=== PATIENT | male | born 1975 | race Caucasian/White ===

== ENCOUNTER 2019-12-15 11:43 | Inpatient (IN) | payer SELFPAY ==
[~2019-12-15] VITALS: Ht 165.2 cm; Wt 81.3 kg
[2019-12-15] MEDS ORDERED: OCTREOTIDE INJECTION 500 MCG in NS (IVPB) 99 ML IV SCH (12:00)
[2019-12-15] MEDS ORDERED: OCTREOTIDE (FOR SQ USE) 100 MCG/ML VIAL (SandoSTATIN) IV ONE (12:00)
[2019-12-15] MEDS ORDERED: PANTOPRAZOLE 40 MG (PROTONIX) VIAL IV ONE (12:00)
[2019-12-15 12:02] LABS: BASOPHILS % (AUTO) 0 % (0-10); EOSINOPHILS # (AUTO) 0.1 10^3/uL (0.0-0.3); EOSINOPHILS % (AUTO) 1 % (0-10); HEMATOCRIT 27 % (40-54); HEMOGLOBIN 9.7 G/DL (13.3-17.7); LYMPHOCYTES # (AUTO) 2.5 X 10^3 (1.0-4.0); LYMPHOCYTES % (AUTO) 27 % (12-44); MEAN CORPUSCULAR HEMOGLOBIN 33 PG (25-34); MEAN CORPUSCULAR HGB CONC 36 G/DL (32-36); MEAN CORPUSCULAR VOLUME 92 FL (80-99); MEAN PLATELET VOLUME 9.7 FL (7.4-10.4); MONOCYTES # (AUTO) 0.6 X 10^3 (0.0-1.0); MONOCYTES % (AUTO) 7 % (0-12); NEUTROPHILS % (AUTO) 65 % (42-75); PLATELET COUNT 382 10^3/uL (130-400); WHITE BLOOD COUNT 9.2 10^3/uL (4.3-11.0)
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
[2019-12-15] MEDS ORDERED: OCTREOTIDE (FOR BOLUS) 50 MCG/ML SYR (SandoSTATIN) ONE (12:07)
[2019-12-15 12:10] LABS: PROTHROMBIN TIME PATIENT 13.7 SEC (12.2-14.7)
[2019-12-15 12:10] LABS: ALBUMIN 3.5 GM/DL (3.2-4.5); CHLORIDE 103 MMOL/L (98-107); POTASSIUM 3.9 MMOL/L (3.6-5.0); SODIUM 134 MMOL/L (135-145)
[2019-12-15 12:12] LABS: GLUCOSE 160 MG/DL (70-105)
[2019-12-15 12:13] LABS: TOTAL PROTEIN 5.9 GM/DL (6.4-8.2)
[2019-12-15 12:14] LABS: BILIRUBIN,TOTAL 0.2 MG/DL (0.1-1.0); CARBON DIOXIDE 22 MMOL/L (21-32)
[2019-12-15 12:16] LABS: ALKALINE PHOSPHATASE 48 U/L (40-136); CREATININE SERUM 0.79 MG/DL (0.60-1.30); GFR ESTIMATED > 60
[2019-12-15 12:17] LABS: BUN/CREATININE RATIO 35
[2019-12-15 12:19] LABS: ALANINE AMINOTRANSFERASE 17 U/L (0-55)
[2019-12-15] MEDS ORDERED: NS IV 1000 ML 1,000 ML IV SCH (12:30)
[2019-12-15] MEDS ORDERED: OCTREOTIDE INJECTION 50 MCG in NS (IVPB) 50 ML IV ONE (12:30)
[2019-12-15] MEDS ORDERED: HOLD METFORMIN - RECEIVED CONTRAST 20 ML VIAL IV SCH (12:45)
[2019-12-15] MEDS ORDERED: NS 100 ML (IVPB) BAG IV ONE (12:45)
[2019-12-15] MEDS ORDERED: IOHEXOL 350 MG/ML 100 ML (OMNIPAQUE 350) VIAL IV ONE (12:45)
--- NOTE | 2019-12-15 13:13 | Diagnostic Imaging Report ---
INDICATION: Chest pain. No comparison available FINDINGS: Lungs demonstrate no focal infiltrate or consolidation. There is no effusion or pneumothorax. Heart size and mediastinal contours appear appropriate. Pulmonary vascularity appears normal. No acute or suspicious osseous abnormality demonstrated. IMPRESSION: 1. No radiographic evidence of an acute cardiopulmonary process. Dictated by: Dictated on workstation # [id number]
--- NOTE | 2019-12-15 13:19 | Diagnostic Imaging Report ---
PROCEDURE: CT abdomen and pelvis with contrast. TECHNIQUE: Multiple contiguous axial images were obtained through the abdomen and pelvis after administration of intravenous contrast. Auto Exposure Controls were utilized during the CT exam to meet ALARA standards for radiation dose reduction. INDICATION: Gastrointestinal bleeding. History of hepatitis C. Epigastric pain. No comparison available. FINDINGS: The visualized lung bases are clear. There is no pleural or pericardial effusion. The liver demonstrates a small region of subtle and ill-defined hyperenhancement within the right hepatic lobe centrally the likely is a small transient hepatic attenuation difference. There is no well-defined mass evident. The portal veins appear patent. The gallbladder is nondistended without evidence of biliary dilatation. The pancreas demonstrates no focal abnormality. The spleen is normal in size. There is no adrenal mass. The kidneys enhance normally and are nonobstructed. The stomach is nondistended. There are fluid-filled loops of small bowel without evidence of bowel dilation. Distal small bowel decompressed. There is moderate stool throughout the colon. There is uncomplicated diverticulosis. There are no findings of diverticulitis. There is no evidence of appendicitis. There is no free air or free fluid. There is no abscess or adenopathy. Urinary bladder unremarkable. The aorta is normal in caliber. There is no acute or suspicious osseous abnormality. IMPRESSION: 1. No CT evidence of an acute inflammatory or obstructive process within the abdomen and pelvis. 2. Few nonspecific fluid-filled but nondilated loops of small bowel. There is moderate stool within the colon and there is uncomplicated diverticulosis. 3. No focal inflammation within the omentum or mesentery. There is no free fluid. 4. Very subtle and ill-defined hyperenhancement within the right hepatic lobe likely reflect a small incidental transient hepatic attenuation difference. There is no well-defined or capsulated hepatic mass evident. Dictated by: Dictated on workstation # [id number]
[2019-12-15 13:35] LABS: AMPHETAMINE SCREEN, URINE NEGATIVE (NEGATIVE); BARBITURATE SCREEN URINE NEGATIVE (NEGATIVE); BENZODIAZEPINES SCREEN URINE NEGATIVE (NEGATIVE); CANNABINOID SCREEN, URINE NEGATIVE (NEGATIVE); COCAINE SCREEN URINE NEGATIVE (NEGATIVE); METHADONE STAT NEGATIVE (NEGATIVE); METHAMPHETAMINE SCREEN URINE S NEGATIVE (NEGATIVE); OPIATE SCREEN URINE NEGATIVE (NEGATIVE); OXYCODONE STAT NEGATIVE (NEGATIVE); PROPOXYPHENE STAT NEGATIVE (NEGATIVE); TRICYCLIC ANTIDEPRESSANTS SCRE NEGATIVE (NEGATIVE)
[2019-12-15 15:30] VITALS: BP 108/80
[2019-12-15] MEDS ORDERED: ONDANSETRON 4 MG/2 ML (SDV) Z0FRAN IV PRN (15:45)
[2019-12-15] MEDS: NS IV 1000 ML 1,000 ML IV SCH (16:07)
[2019-12-15 16:15] LABS: BASOPHILS % (AUTO) 0 % (0-10); EOSINOPHILS # (AUTO) 0.1 10^3/uL (0.0-0.3); EOSINOPHILS % (AUTO) 1 % (0-10); HEMATOCRIT 24 % (40-54); HEMOGLOBIN 8.5 G/DL (13.3-17.7); LYMPHOCYTES # (AUTO) 2.6 X 10^3 (1.0-4.0); LYMPHOCYTES % (AUTO) 33 % (12-44); MEAN CORPUSCULAR HEMOGLOBIN 32 PG (25-34); MEAN CORPUSCULAR HGB CONC 35 G/DL (32-36); MEAN CORPUSCULAR VOLUME 93 FL (80-99); MEAN PLATELET VOLUME 9.6 FL (7.4-10.4); MONOCYTES # (AUTO) 0.6 X 10^3 (0.0-1.0); MONOCYTES % (AUTO) 8 % (0-12); NEUTROPHILS # (AUTO) 4.5 X 10^3 (1.8-7.8); NEUTROPHILS % (AUTO) 58 % (42-75); PLATELET COUNT 319 10^3/uL (130-400); WHITE BLOOD COUNT 7.9 10^3/uL (4.3-11.0)
[2019-12-15 16:25] LABS: ALBUMIN 3.3 GM/DL (3.2-4.5); CHLORIDE 104 MMOL/L (98-107); SODIUM 135 MMOL/L (135-145)
[2019-12-15 16:26] LABS: CALCIUM 7.6 MG/DL (8.5-10.1)
[2019-12-15 16:28] LABS: GLUCOSE 144 MG/DL (70-105); TOTAL PROTEIN 5.5 GM/DL (6.4-8.2)
[2019-12-15 16:29] LABS: CARBON DIOXIDE 22 MMOL/L (21-32)
[2019-12-15 16:30] LABS: BILIRUBIN,TOTAL 0.3 MG/DL (0.1-1.0)
[2019-12-15 16:31] LABS: ALKALINE PHOSPHATASE 45 U/L (40-136); CREATININE SERUM 0.77 MG/DL (0.60-1.30); GFR ESTIMATED > 60
[2019-12-15 16:32] LABS: BUN/CREATININE RATIO 27
[2019-12-15 16:34] LABS: ALANINE AMINOTRANSFERASE 16 U/L (0-55)
[2019-12-15 17:00] VITALS: BP 108/80
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
[2019-12-15 20:02] VITALS: BP 108/65
[2019-12-15] MEDS: PANTOPRAZOLE 40 MG (PROTONIX) VIAL IV SCH (21:38)
[2019-12-15] MEDS: OCTREOTIDE DRIP 500 MCG/NS 99 ML IV SCH ×2 (21:51)
[2019-12-16] VITALS (9 sets, daily range): BP systolic 87–126; BP diastolic 49–73
[2019-12-16] MEDS: NS IV 1000 ML 1,000 ML IV SCH ×2 (00:38→17:38)
--- NOTE | 2019-12-16 00:39 | NUR ---
SCANNER IN ROOM NOT WORKING, TICKET PUT IN
[2019-12-16] MEDS: OCTREOTIDE DRIP 500 MCG/NS 99 ML IV SCH ×6 (02:08→21:40)
[2019-12-16 02:39] LABS: HEMOGLOBIN 7.3 G/DL (13.3-17.7); MEAN PLATELET VOLUME 9.4 FL (7.4-10.4); WHITE BLOOD COUNT 6.2 10^3/uL (4.3-11.0)
[2019-12-16 02:47] LABS: CHLORIDE 107 MMOL/L (98-107); POTASSIUM 4.4 MMOL/L (3.6-5.0); SODIUM 136 MMOL/L (135-145)
[2019-12-16 02:48] LABS: CALCIUM 7.4 MG/DL (8.5-10.1); GLUCOSE 134 MG/DL (70-105)
[2019-12-16 02:50] LABS: CARBON DIOXIDE 23 MMOL/L (21-32)
[2019-12-16 02:52] LABS: GFR ESTIMATED > 60
[2019-12-16 02:53] LABS: BUN/CREATININE RATIO 20
[2019-12-16] MEDS ORDERED: ACETAMINOPHEN 500 MG TAB (TYLENOL) ONE (03:30)
[2019-12-16] MEDS: ACETAMINOPHEN 500 MG TAB (TYLENOL) PO PRN ×2 (03:48→17:01)
--- NOTE | 2019-12-16 04:18 | Pulmonary Consultation ---
History of Present Illness History of Present Illness Date Seen by Provider: Dec 16, 2019 Time Seen by Provider: 04:13 Date of Admission Reason for Visit: hematemesis and syncope History of Present Illness 44yo with hx of hepatitis C presented to ED secondary to SOB, vomiting blood, and hematochezia over the last preceding 3 days. PT also had syncope the night prior to admission. Denies alcohol or drug use. Pt was admitted to ICU and surgery is consulted. Allergies and Home Medications Allergies Coded Allergies: No Known Drug Allergies (Unverified , 12/15/19) Past Ocvbmgq-Bbwgrq-Ighqrr Hx Patient Social History Alcohol Use: Denies Use Recreational Drug Use: No Smoking Status: Never a Smoker Recent Foreign Travel: No Contact w/Someone Who Travel: No Recent Infectious Disease Expo: No Recent Hopitalizations: No Immunizations Up To Date Tetanus Booster (TDap): Unknown Seasonal Allergies Seasonal Allergies: No Past Medical History Surgeries: Yes Respiratory: No Cardiac: No Neurological: No Genitourinary: No HEENT: No Cancer: No Psychosocial: No Integumentary: No Blood Disorders: No Family Medical History Cardiovascular disease 19 FATHER 19 MOTHER FH: breast cancer 19 MOTHER FH: colon cancer 19 FATHER Hypertension 19 FATHER 19 MOTHER Myocardial infarction 19 FATHER 19 MOTHER No Pertinent Family Hx Review of Systems Time Seen by Provider: 04:17 Constitutional: Weakness, Malaise; No: Fever, Chills, Sweats, Other Eyes: No: Pain, Vision change, Conjunctivae inflammation, Eyelid inflammation, Other, Redness ENT: No: Ear pain, Ear discharge, Nose pain, Nose discharge, Nose congestion, Mouth pain, Mouth swelling, Throat pain, Throat swelling, Other Respiratory: Cough, Dry, Shortness of breath, SOB with excertion Cardiovascular: Palpitations, Paroxysmal Noc. Dyspnea, Lt Headedness; No: Chest Pain, Orthopnea, Edema, Other Gastrointestinal: Nausea, Vomiting, Abdominal Pain, Hematochezia Genitourinary: No Dysuria, No Frequency, No Incontinence, No Hematuria, No Retention, No Other Sepsis Event Evaluation Height, Weight, BMI Height: '" Weight: lbs. oz. kg; 29.89 BMI Method: Exam Exam Vital Signs Date Time Temp Pulse Resp B/P (MAP) Pulse Ox O2 Delivery O2 Flow Rate FiO2 12/16/19 04:00 95 Room Air 12/16/19 04:00 36.5 12/16/19 02:27 86 17 92/68 (76) 100 Room Air 12/16/19 01:00 79 12/16/19 00:00 37.1 12/16/19 00:00 85 16 87/49 (62) 100 Room Air 12/16/19 00:00 95 Room Air 12/15/19 21:00 100 Room Air 12/15/19 20:02 87 13 108/65 (79) 100 Room Air 12/15/19 20:00 95 Room Air 12/15/19 19:01 93 12/15/19 17:38 103 12/15/19 17:00 95 Room Air 12/15/19 17:00 95 Room Air 12/15/19 17:00 94 21 108/80 95 Room Air 12/15/19 15:30 94 21 108/80 (89) 95 12/15/19 15:11 87 20 117/66 98 Room Air 12/15/19 11:45 93 20 130/83 (99) 96 Room Air I & O 12/16/19 07:00 Intake Total 1400 ml Output Total 350 ml Balance 1050 ml Height & Weight Height: '" Weight: lbs. oz. kg; 29.89 BMI Method: General Appearance: No Apparent Distress, WD/WN HEENT: PERRL/EOMI, Normal ENT Inspection, Pharynx Normal Neck: Full Range of Motion, Normal Inspection, Non Tender, Supple Respiratory: Chest Non Tender, No Accessory Muscle Use, No Respiratory Distre ss, Decreased Breath Sounds Cardiovascular: Regular Rate, Rhythm, No Edema, No Gallop Capillary Refill: Less Than 3 Seconds Peripheral Pulses: 2+ Dorsalis Pedis (R), 2+ Left Dors-Pedis (L) Gastrointestinal: non tender (reports pain in chest with deep RUQ palpation), soft; No guarding, No rebound Extremity: Normal Capillary Refill, Normal Inspection, No Pedal Edema Neurologic/Psychiatric: Alert, Oriented x3 Skin: Normal Color, Warm/Dry Lymphatic: No Adenopathy Results Lab Laboratory Tests 12/15/19 11:47 12/15/19 11:57 12/15/19 15:58 12/16/19 02:21 Assessment/Plan Assessment/Plan Anemia with acute GI Bleed and with hx of Hepatitis C -Surgery is consulted -Continue protonix and octreotide --Start PPx Abx with Rocephin -Repeat CBC at 1300 Hepatitis C with probable cirrhosis --Start PPx Abx with Rocephin SOB probably secondary to anemia -Monitor YANICK ECHOLS DO Dec 16, 2019 04:18
--- NOTE | 2019-12-16 04:21 | Pulmonary Consultation ---
History of Present Illness History of Present Illness Date Seen by Provider: Dec 16, 2019 Time Seen by Provider: 04:10 Date of Admission Reason for Visit: hematemesis and syncope History of Present Illness Kendall Rivas is a 44 year old carloz seen today after being admitted from the ED 12/14 with complaint of hematemesis and melena that had been occuring for three days a nd worsened over the prior day and a half. When seen today he has no complaints, no recurrence of hematemesis or melena, although he has not had a bowel movement since admission. He reports having right sided CP that he does not associate with his recent symptoms, a 6/10 sharp right sided pain that is constant with no known aggravating factors that improves with acetaminophen. Denies any fevers/chills, nausea, SOB, cough, palpitations. Allergies and Home Medications Allergies Coded Allergies: No Known Drug Allergies (Unverified , 12/15/19) Past Vnuabpx-Lceavu-Inzzvk Hx Patient Social History Alcohol Use: Denies Use Recreational Drug Use: No Smoking Status: Never a Smoker Recent Foreign Travel: No Contact w/Someone Who Travel: No Recent Infectious Disease Expo: No Recent Hopitalizations: No Immunizations Up To Date Tetanus Booster (TDap): Unknown Seasonal Allergies Seasonal Allergies: No Past Medical History Surgeries: Yes Respiratory: No Cardiac: No Neurological: No Genitourinary: No HEENT: No Cancer: No Psychosocial: No Integumentary: No Blood Disorders: No Family Medical History Cardiovascular disease 19 FATHER 19 MOTHER FH: breast cancer 19 MOTHER FH: colon cancer 19 FATHER Hypertension 19 FATHER 19 MOTHER Myocardial infarction 19 FATHER 19 MOTHER No Pertinent Family Hx Review of Systems Date Seen by Provider: Dec 16, 2019 Constitutional: No: Fever, Chills ENT: No: Nose congestion, Throat pain Respiratory: No: Cough, Shortness of breath Cardiovascular: Chest Pain; No: Palpitations, Edema Gastrointestinal: Vomiting (hematemesis), Melena; No: Nausea, Abdominal Pain Neurological: No: Weakness, Numbness Sepsis Event Evaluation Height, Weight, BMI Height: '" Weight: lbs. oz. kg; 29.89 BMI Method: Exam Exam Vital Signs Date Time Temp Pulse Resp B/P (MAP) Pulse Ox O2 Delivery O2 Flow Rate FiO2 12/16/19 04:00 95 Room Air 12/16/19 04:00 36.5 12/16/19 02:27 86 17 92/68 (76) 100 Room Air 12/16/19 01:00 79 12/16/19 00:00 37.1 12/16/19 00:00 85 16 87/49 (62) 100 Room Air 12/16/19 00:00 95 Room Air 12/15/19 21:00 100 Room Air 12/15/19 20:02 87 13 108/65 (79) 100 Room Air 12/15/19 20:00 95 Room Air 12/15/19 19:01 93 12/15/19 17:38 103 12/15/19 17:00 95 Room Air 12/15/19 17:00 95 Room Air 12/15/19 17:00 94 21 108/80 95 Room Air 12/15/19 15:30 94 21 108/80 (89) 95 12/15/19 15:11 87 20 117/66 98 Room Air 12/15/19 11:45 93 20 130/83 (99) 96 Room Air I & O 12/16/19 07:00 Intake Total 1400 ml Output Total 350 ml Balance 1050 ml Height & Weight Height: '" Weight: lbs. oz. kg; 29.89 BMI Method: General Appearance: No Apparent Distress, WD/WN HEENT: PERRL/EOMI; No Scleral Icterus (L), No Scleral Icterus (R) Neck: Normal Inspection, Non Tender, Supple Respiratory: Lungs Clear, Normal Breath Sounds, No Accessory Muscle Use, No Respiratory Distress Cardiovascular: Regular Rate, Rhythm, No Edema, No Murmur, Normal Peripheral Pulses Capillary Refill: Less Than 3 Seconds Peripheral Pulses: 2+ Dorsalis Pedis (R), 2+ Left Dors-Pedis (L), 2+ Radial Pulses (R), 2+ Radial Pulses (L) Gastrointestinal: normal bowel sounds, non tender, soft, no organomegaly Extremity: Normal Inspection, Normal Range of Motion, Non Tender, No Calf Tenderness, No Pedal Edema Neurologic/Psychiatric: Alert, Oriented x3, Normal Mood/Affect Skin: Normal Color, Warm/Dry Results Lab Laboratory Tests 12/15/19 11:47 12/15/19 11:57 12/15/19 15:58 12/16/19 02:21 Assessment/Plan Assessment/Plan Anemia - Hgb 7.3, down from 8.5 yesterday, no recurrence of hematemesis or melena, on IV fluids and may be due to dilution, continue to monitor Hematemesis, Melena - no recurrence since admission - general surgery consulted, to determine inpatient vs outpatient EGD - continue protonix KYM PANDEY MED STUDENT Dec 16, 2019 04:21
[2019-12-16] MEDS ORDERED: cefTRIAXone 1,000 MG IV (ROCEPHIN) VIAL ONE (04:26)
[2019-12-16] MEDS: cefTRIAXone FOR IV USE 1,000 MG in WATER (STERILE) FOR INJECTION 10 ML IV SCH (04:32)
[2019-12-16 04:43] LABS: PHOSPHORUS 2.8 MG/DL (2.3-4.7)
[2019-12-16 04:45] LABS: MAGNESIUM 1.9 MG/DL (1.6-2.4)
[2019-12-16 06:17] LABS: BILIRUBIN,URINE NEGATIVE (NEGATIVE); CLARITY,URINE CLEAR; COLOR,URINE YELLOW; GLUCOSE, URINE (UA) NEGATIVE (NEGATIVE); KETONES,URINE NEGATIVE (NEGATIVE); LEUKOCYTE ESTERASE ,URINE NEGATIVE (NEGATIVE); NITRITE,URINE NEGATIVE (NEGATIVE); PROTEIN,URINE NEGATIVE (NEGATIVE)
[2019-12-16 06:54] LABS: BACTERIA,URINE NEGATIVE /HPF; SQUAMOUS EPITHELIAL CELL,UR RARE /HPF
--- NOTE | 2019-12-16 08:10 | History & Physical-Hospitalist ---
History of Present Illness HPI/Chief Complaint patient is a 44-year-old male with past medical history of retention who presented to the emergency department due to vomiting blood. He states that report of days ago. It started as very black. It has progressed to play bread and he is started to have dark black stools as well. He was reluctant to go to the emergency department but developed orthostasis and actually had a syncopal episode so decided to seek evaluation. Hemoglobin on arrival was 9.6. Fortunately since admission he has had no further hematemesis. He reports the plan is for an EGD per surgery. Source: patient Date Seen 12/16/19 Time Seen by a Provider: 08:06 Attending Physician Adrienne Castillo MD PCP No,Local Physician Referring Physician Date of Admission Dec 15, 2019 at 13:30 Home Medications & Allergies Home Medications Reviewed patient Home Medication Reconciliation performed by pharmacy medication reconciliations electronic calibration technician and/or nursing. Patients Allergies have been reviewed. Allergies Allergies Coded Allergies No Known Drug Allergies (Unverified12/15/19) Past Dkbmtpi-Vjqpth-Mmbnba Hx Past Med/Social Hx: Reviewed Nursing Past Med/Soc Hx Patient Social History Marrital Status: Alcohol Use: Denies Use Recreational Drug Use: No Smoking Status: Never a Smoker Recent Foreign Travel: No Contact w/other who traveled: No Recent Hopitalizations: No Recent Infectious Disease Expo: No Immunizations Up To Date Tetanus Booster (TDap): Unknown Seasonal Allergies Seasonal Allergies: No Past Medical History Cardiac: Hypertension History of Blood Disorders: No Family History Reviewed Nursing Family Hx Cardiovascular disease 19 FATHER 19 MOTHER FH: breast cancer 19 MOTHER FH: colon cancer 19 FATHER Hypertension 19 FATHER 19 MOTHER Myocardial infarction 19 FATHER 19 MOTHER No Pertinent Family Hx Review of Systems Constitutional: dizziness; No fever EENTM: no symptoms reported Respiratory: No cough, No short of breath Cardiovascular: No chest pain, No Hx of Intervention Gastrointestinal: hematemesis, melena, nausea, vomiting Genitourinary: no symptoms reported Musculoskeletal: back pain Skin: no symptoms reported Psychiatric/Neurological: No Symptoms Reported Physical Exam Physical Exam Vital Signs Vital Signs - First Documented 12/15/19 12/16/19 11:45 00:00 Temp 37.1 Pulse 93 Resp 20 B/P (MAP) 130/83 (99) Pulse Ox 96 O2 Delivery Room Air Capillary Refill : Less Than 3 Seconds Height, Weight, BMI Height: '" Weight: lbs. oz. kg; 29.89 BMI Method: General Appearance: No Apparent Distress, WD/WN HEENT: PERRL/EOMI, Moist Mucous Membranes; No Scleral Icterus (L), No Scleral Icterus (R) Neck: Normal Inspection, Supple Respiratory: Lungs Clear, No Accessory Muscle Use, No Respiratory Distress Cardiovascular: Regular Rate, Rhythm, No Murmur Gastrointestinal: Normal Bowel Sounds, Non Tender, Soft, Other (large ho rizontal scar over abdomen) Extremity: Normal Capillary Refill, No Calf Tenderness, No Pedal Edema, Other (vertical scar along left forearm ) Neurologic/Psychiatric: Alert, Oriented x3, Normal Mood/Affect; No Aphasia Skin: Normal Color, Warm/Dry; No Mottled, No Pallor; Tattoos/Piercings Results Results/Procedures Labs Laboratory Tests 12/15/19 11:47 12/15/19 11:57 12/15/19 15:58 12/16/19 02:21 Patient resulted labs reviewed. Imaging: Reviewed Imaging Report [facility] [place], [place] NAME: [facility] REC#: [id number] PT STATUS: REG ER : 1975 PHYSICIAN: ROGER LOCO APRN ADMIT DATE: 12/15/19/ER Signed Date of Exam:12/15/19 CHEST 1 VIEW, AP/PA ONLY INDICATION: Chest pain. No comparison available FINDINGS: Lungs demonstrate no focal infiltrate or consolidation. There is no effusion or pneumothorax. Heart size and mediastinal contours appear appropriate. Pulmonary vascularity appears normal. No acute or suspicious osseous abnormality demonstrated. IMPRESSION: 1. No radiographic evidence of an acute cardiopulmonary process. Dictated by: Dictated on workstation # [id number] Dict: 12/15/19 1258 Trans: 12/15/19 1403 [id number] Interpreted by: MANNIE WEAVER MD Electronically signed by: MANNIE WEAVER MD 12/15/19 1403 [facility] [place], [place] NAME: [facility] REC#: [id number] PT STATUS: REG ER : 1975 PHYSICIAN: ROGER LOCO INGOT HEADER ADMIT DATE: 12/15/19/ER Signed Date of Exam:12/15/19 CT ABDOMEN/PELVIS W PROCEDURE: CT abdomen and pelvis with contrast. TECHNIQUE: Multiple contiguous axial images were obtained through the abdomen and pelvis after administration of intravenous contrast. Auto Exposure Controls were utilized during the CT exam to meet ALARA standards for radiation dose reduction. INDICATION: Gastrointestinal bleeding. History of hepatitis C. Epigastric pain. No comparison available. FINDINGS: The visualized lung bases are clear. There is no pleural or pericardial effusion. The liver demonstrates a small region of subtle and ill-defined hyperenhancement within the right hepatic lobe centrally the likely is a small transient hepatic attenuation difference. There is no well-defined mass evident. The portal veins appear patent. The gallbladder is nondistended without evidence of biliary dilatation. The pancreas demonstrates no focal abnormality. The spleen is normal in size. There is no adrenal mass. The kidneys enhance normally and are nonobstructed. The stomach is nondistended. There are fluid-filled loops of small bowel without evidence of bowel dilation. Distal small bowel decompressed. There is moderate stool throughout the colon. There is uncomplicated diverticulosis. There are no findings of diverticulitis. There is no evidence of appendicitis. There is no free air or free fluid. There is no abscess or adenopathy. Urinary bladder unremarkable. The aorta is normal in caliber. There is no acute or suspicious osseous abnormality. IMPRESSION: 1. No CT evidence of an acute inflammatory or obstructive process within the abdomen and pelvis. 2. Few nonspecific fluid-filled but nondilated loops of small bowel. There is moderate stool within the colon and there is uncomplicated diverticulosis. 3. No focal inflammation within the omentum or mesentery. There is no free fluid. 4. Very subtle and ill-defined hyperenhancement within the right hepatic lobe likely reflect a small incidental transient hepatic attenuation difference. There is no well-defined or capsulated hepatic mass evident. Dictated by: Dictated on workstation # [id number] Dict: 12/15/19 1259 Trans: 12/15/19 1403 [id number] Interpreted by: MANNIE WEAVER MD Electronically signed by: MANNIE WEAVER MD 12/15/19 1403 Assessment/Plan Admission Diagnosis GI Bleed Admission Status: Inpatient Order (span 2 midnights) Reason for Inpatient Admission: see below Assessment and Plan GI Bleed Hepatitis C- not currently on treatment Hypotension Hgb 7.3 currently, trend Transfuse for Hgb <7 Continue PPI and Octreotide Plan for scope today per surgery, appreciate their help Already Type and Screened HTN Does not take anything for this at home BP on the low side, likely due to volume depletion Trend Hyperglycemia No known history of DM Within goal for hospital, will need outpatient follow up DVT ppx: SCDs only Diagnosis/Problems Diagnosis/Problems (1) Upper GI bleed Status: Acute (2) Normocytic anemia Status: Acute (3) Hematochezia Status: Acute (4) Hepatitis-C Status: Chronic Qualifiers: Viral hepatitis chronicity: chronic Hepatic coma status: without hepatic coma Qualified Codes: B18.2 - Chronic viral hepatitis C (5) Hypertension Status: Chronic Qualifiers: Hypertension type: essential hypertension Qualified Codes: I10 - Essential (primary) hypertension (6) Hyperglycemia Status: Acute (7) Hypotension Status: Acute Qualifiers: Hypotension type: hypotension due to hypovolemia Qualified Codes: I95.89 - Other hypotension; E86.1 - Hypovolemia Clinical Quality Measures DVT/VTE Risk/Contraindication: Risk Factor Score Per Nursin RFS Level Per Nursing on Admit: 1=Low/No VTE PPX ADRIENNE CASTILLO MD Dec 16, 2019 08:10
[2019-12-16] MEDS ORDERED: LACTATED RINGERS 1,000 ML IV PRN (08:29)
--- NOTE | 2019-12-16 08:44 | Progress Note - Surgery ---
Subjective Date Seen by a Provider: Dec 16, 2019 Time Seen by a Provider: 08:41 Subjective/Events-last exam No more bloody emesis. Still with epigastric pain. Hgb drop. Slight shortness of breath. Denies n/v fever sweats chills or chest pain at this time Objective Exam Vital Signs Date Time Temp Pulse Resp B/P (MAP) Pulse Ox O2 Delivery O2 Flow Rate FiO2 12/16/19 08:02 36.4 80 20 111/66 (81) 99 Room Air 12/16/19 04:00 95 Room Air 12/16/19 04:00 36.5 12/16/19 02:27 86 17 92/68 (76) 100 Room Air 12/16/19 01:00 79 12/16/19 00:00 37.1 12/16/19 00:00 85 16 87/49 (62) 100 Room Air 12/16/19 00:00 95 Room Air 12/15/19 21:00 100 Room Air 12/15/19 20:02 87 13 108/65 (79) 100 Room Air 12/15/19 20:00 95 Room Air 12/15/19 19:01 93 12/15/19 17:38 103 12/15/19 17:00 95 Room Air 12/15/19 17:00 95 Room Air 12/15/19 17:00 94 21 108/80 95 Room Air 12/15/19 15:30 94 21 108/80 (89) 95 12/15/19 15:11 87 20 117/66 98 Room Air 12/15/19 11:45 93 20 130/83 (99) 96 Room Air I & O 12/16/19 07:00 Intake Total 1500 ml Output Total 1350 ml Balance 150 ml Capillary Refill : Less Than 3 Seconds General Appearance: No Apparent Distress, WD/WN HEENT: PERRL/EOMI, Moist Mucous Membranes; No Scleral Icterus (L), No Scleral Icterus (R) Neck: Normal Inspection, Supple Respiratory: Chest Non Tender, No Accessory Muscle Use, No Respiratory Distress Cardiovascular: Regular Rate, Rhythm, No JVD Peripheral Pulses: 2+ Dorsalis Pedis (R), 2+ Left Dors-Pedis (L), 2+ Radial Pulses (R), 2+ Radial Pulses (L) Gastrointestinal: soft, no organomegaly, tenderness (epigastric tenderness minimal) Extremity: Normal Capillary Refill, Non Tender, No Calf Tenderness, No Pedal Edema Neurologic/Psychiatric: Alert, Oriented x3, Normal Mood/Affect; No Aphasia Skin: Normal Color, Warm/Dry; No Mottled, No Pallor; Tattoos/Piercings Lymphatic: No Adenopathy Results Lab Laboratory Tests 12/15/19 11:47: White Blood Count 9.2, Red Blood Count 2.95L, Hemoglobin 9.7L, Hematocrit 27L, Mean Corpuscular Volume 92, Mean Corpuscular Hemoglobin 33, Mean Corpuscular Hemoglobin Concent 36, Red Cell Distribution Width 12.3, Platelet Count 382, Mean Platelet Volume 9.7, Neutrophils (%) (Auto) 65, Lymphocytes (%) (Auto) 27, Monocytes (%) (Auto) 7, Eosinophils (%) (Auto) 1, Basophils (%) (Auto) 0, Neutrophils # (Auto) 6.0, Lymphocytes # (Auto) 2.5, Monocytes # (Auto) 0.6, Eosinophils # (Auto) 0.1, Basophils # (Auto) 0.0, Prothrombin Time 13.7, INR Comment 1.0 12/15/19 11:57: Sodium Level 134L, Potassium Level 3.9, Chloride Level 103, Carbon Dioxide Level 22, Anion Gap 9, Blood Urea Nitrogen 28H, Creatinine 0.79, Estimat Glomerular Filtration Rate > 60, BUN/Creatinine Ratio 35, Glucose Level 160H, Calcium Level 8.0L, Corrected Calcium 8.4L, Total Bilirubin 0.2, Aspartate Amino Transf (AST/SGOT) 15, Alanine Aminotransferase (ALT/SGPT) 17, Alkaline Phosphatase 48, Total Protein 5.9L, Albumin 3.5, Serum Alcohol < 10 12/15/19 13:09: Urine Opiates Screen NEGATIVE, Urine Oxycodone Screen NEGATIVE, Urine Methadone Screen NEGATIVE, Urine Propoxyphene Screen NEGATIVE, Urine Barbiturates Screen NEGATIVE, Ur Tricyclic Antidepressants Screen NEGATIVE, Urine Phencyclidine Screen NEGATIVE, Urine Amphetamines Screen NEGATIVE, Urine Methamphetamines Screen NEGATIVE, Urine Benzodiazepines Screen NEGATIVE, Urine Cocaine Screen NEGATIVE, Urine Cannabinoids Screen NEGATIVE 12/15/19 15:58: White Blood Count 7.9, Red Blood Count 2.62L, Hemoglobin 8.5L, Hematocrit 24L, Mean Corpuscular Volume 93, Mean Corpuscular Hemoglobin 32, Mean Corpuscular Hemoglobin Concent 35, Red Cell Distribution Width 12.4, Platelet Count 319, Mean Platelet Volume 9.6, Neutrophils (%) (Auto) 58, Lymphocytes (%) (Auto) 33, Monocytes (%) (Auto) 8, Eosinophils (%) (Auto) 1, Basophils (%) (Auto) 0, Neutrophils # (Auto) 4.5, Lymphocytes # (Auto) 2.6, Monocytes # (Auto) 0.6, Eosinophils # (Auto) 0.1, Basophils # (Auto) 0.0, Sodium Level 135, Potassium Level 4.0, Chloride Level 104, Carbon Dioxide Level 22, Anion Gap 9, Blood Urea Nitrogen 21H, Creatinine 0.77, Estimat Glomerular Filtration Rate > 60, BUN/Creatinine Ratio 27, Glucose Level 144H, Calcium Level 7.6L, Corrected Calcium 8.2L, Total Bilirubin 0.3, Aspartate Amino Transf (AST/SGOT) 13, Alanine Aminotransferase (ALT/SGPT) 16, Alkaline Phosphatase 45, Total Protein 5.5L, Albumin 3.3 12/16/19 02:21: White Blood Count 6.2, Red Blood Count 2.25L, Hemoglobin 7.3L, Hematocrit 21L, Mean Corpuscular Volume 94, Mean Corpuscular Hemoglobin 32, Mean Corpuscular Hemoglobin Concent 34, Red Cell Distribution Width 12.6, Platelet Count 271, Mean Platelet Volume 9.4, Sodium Level 136, Potassium Level 4.4, Chloride Level 107, Carbon Dioxide Level 23, Anion Gap 6, Blood Urea Nitrogen 16, Creatinine 0.80, Estimat Glomerular Filtration Rate > 60, BUN/Creatinine Ratio 20, Glucose Level 134H, Calcium Level 7.4L, Phosphorus Level 2.8, Magnesium Level 1.9 12/16/19 06:10: Urine Color YELLOW, Urine Clarity CLEAR, Urine pH 6.0, Urine Specific [place] <=1.005, Urine Protein NEGATIVE, Urine Glucose (UA) NEGATIVE, Urine Ketones NEGATIVE, Urine Nitrite NEGATIVE, Urine Bilirubin NEGATIVE, Urine Urobilinogen 0.2, Urine Leukocyte Esterase NEGATIVE, Urine RBC (Auto) NEGATIVE, Urine RBC NONE, Urine WBC NONE, Urine Squamous Epithelial Cells RARE, Urine Crystals NONE, Urine Bacteria NEGATIVE, Urine Casts NONE, Urine Mucus SMALLH, Urine Culture Indicated NO Assessment/Plan Assessment/Plan Assessment/Plan anemia hematemesis blood in stool/melena hepatitis C epigastric abd pain follow hgb transfusing prbc as needed on protonix/octreotide drop in hgb discussed risks and benefits of egd for further evaluation he understands and wishes to proceed consent egd npo Clinical Quality Measures DVT/VTE Risk/Contraindication: Risk Factor Score Per Nursin RFS Level Per Nursing on Admit: 1=Low/No VTE PPX TATUM CUBA DO Dec 16, 2019 08:44
[2019-12-16] MEDS ORDERED: MIDAZOLAM 2 MG/2 ML (VERSED) VIAL ONE (08:49)
[2019-12-16] MEDS ORDERED: proPOfol 200 MG/20 ML (DIPRIVAN) VIAL IV ONE (08:49)
[2019-12-16] MEDS ORDERED: LACTATED RINGERS 1,000 ML IV ONE ×2 (09:00→09:45)
[2019-12-16] MEDS: PANTOPRAZOLE 40 MG (PROTONIX) VIAL IV SCH ×2 (09:00→21:05)
[2019-12-16] MEDS ORDERED: HURRICAINE EXT TUBE (BENZOCAINE) ONE (09:02)
--- NOTE | 2019-12-16 09:04 | NUR ---
PT TO ENDOSCOPY VIA W/C
[2019-12-16] MEDS ORDERED: HURRICAINE EXT TUBE (BENZOCAINE) XX ONE (09:45)
--- NOTE | 2019-12-16 10:44 | Progress Note-Post Operative ---
Post-Operative Progess Note Surgeon (s)/Can Dragger (s) Surgeon TATUM CUBA DO Can Dragger: na Pre-Operative Diagnosis hematemesis, anemia Post-Operative Diagnosis slight gastritis, patchy mucosal changes of eosophagus, esophageal varices Procedure & Operative Findings Date of Procedure 12/16/19 Procedure Performed/Findings egd c biopsies Anesthesia Type per [facility] Estimated Blood Loss Estimated blood loss (mL): scant Specimens/Packing Specimens Removed antrum, distal esophagus TATUM CUBA DO Dec 16, 2019 10:44
[2019-12-16 13:13] LABS: BASOPHILS % (AUTO) 0 % (0-10); EOSINOPHILS # (AUTO) 0.1 10^3/uL (0.0-0.3); EOSINOPHILS % (AUTO) 2 % (0-10); HEMATOCRIT 21 % (40-54); HEMOGLOBIN 7.2 G/DL (13.3-17.7); LYMPHOCYTES # (AUTO) 1.9 X 10^3 (1.0-4.0); LYMPHOCYTES % (AUTO) 34 % (12-44); MEAN CORPUSCULAR HEMOGLOBIN 32 PG (25-34); MEAN CORPUSCULAR HGB CONC 34 G/DL (32-36); MEAN CORPUSCULAR VOLUME 96 FL (80-99); MONOCYTES # (AUTO) 0.4 X 10^3 (0.0-1.0); MONOCYTES % (AUTO) 7 % (0-12); NEUTROPHILS # (AUTO) 3.1 X 10^3 (1.8-7.8); NEUTROPHILS % (AUTO) 57 % (42-75); PLATELET COUNT 281 10^3/uL (130-400); WHITE BLOOD COUNT 5.4 10^3/uL (4.3-11.0)
--- NOTE | 2019-12-16 13:15 | OPERATIVE REPORT ---
DATE OF SERVICE: 12/16/2019 PREOPERATIVE DIAGNOSES: Hematemesis, anemia. POSTOPERATIVE DIAGNOSES: Slight gastritis, patchy mucosal changes of esophagus, esophageal varices. PROCEDURE: EGD with biopsy. SURGEON: Tatum Bennett DO ANESTHESIA: Per MDA. ESTIMATED BLOOD LOSS: Scant. COMPLICATIONS: None. SPECIMENS: Antrum and distal esophagus. INDICATIONS: The patient is a 44-year-old male with hematemesis and found to be anemic. The patient understands risks and benefits of having EGD performed. He understands risks and benefits of procedure and wishes to proceed. Consent was signed in the chart. DESCRIPTION OF PROCEDURE: The patient was taken to the endoscopy suite, placed in left lateral recumbent position. Timeout was performed. Scope was inserted in mouth, down the esophagus, stomach and into the duodenum without difficulty. There were no polyps, masses or ulcerations within the duodenum. Scope was then slowly retracted back into the stomach. Some slight erythematous changes in the antrum. Biopsy of the antrum was obtained. No polyps, masses or ulcerations. Scope was retroflexed noting no other pathology. Scope was returned to its normal position, slowly withdrawn to distal esophagus, which had patchy mucosal changes of the esophagus. Biopsy was obtained. Also had appearance of some esophageal varices present. No active bleeding. Scope was then slowly retracted back to completely remove noting no other pathology. The patient tolerated procedure well without any complications, taken to recovery room in stable condition. RECOMMENDATIONS: I would recommend follow up with GI for possible management and re-scope of esophageal varices. We will have followup on pathology. Continue with current medical management. Job ID: [id number] DocumentID: [id number] Dictated Date: 12/16/2019 10:47:37 Mud Grinder Date: 12/16/2019 13:14:21 Dictated By: TATUM BENNETT DO
--- NOTE | 2019-12-16 13:24 | NUR ---
SPOKE WITH THE PT TO COMPLETE THE MED REC PT DENIES TAKING ANY PRESCRIPTION OR OTC MEDICATION
--- NOTE | 2019-12-16 14:51 | NUR ---
1420 PT STATES " I CAN'T CATH MY BREATH." SA02 NOTED AT 100%, PT SITTING UP IN CHAIR, THIS RN INSTRUCTED PT TO SLOW DOWN HIS BREATHING AND TO FOCUS ON BREATHING. DR GONZALEZ NOTIFIED THAT THIS IS THE 3 RD TIME PT HAS BEEN ANXIOUS. NEW ORDERS RECEIVED SEE ORDER HX Addendum: 12/16/19 at 1455 by TYREE BRUNER RN WRONG PT
--- NOTE | 2019-12-16 14:55 | NUR ---
DR GARCES NOTIFIED OF PT'S REPEAT CBC RESULTS, NO NEW ORDERS RECEIVED. DUE TO CHANGES IN STAFFING CARE OF PT TO Yanira ADAME RN.
--- NOTE | 2019-12-16 17:35 | NUR ---
THIS NURSE CALLED REPORT TO BRANDEN HILL ON FOURTH FLOOR. PT TAKEN DOWN VIA WHEELCHAIR WITH BELONGINGS.
--- NOTE | 2019-12-16 17:40 | NUR ---
This RN assumed patient care at this time. patient alert and orientated, talking on cell phone at this time. verbalized no additional needs
[2019-12-17 00:26] VITALS: BP 106/59
[2019-12-17] MEDS: NS IV 1000 ML 1,000 ML IV SCH (01:54)
[2019-12-17 04:00] VITALS: BP 124/58
[2019-12-17] MEDS ORDERED: cefTRIAXone 1,000 MG IV (ROCEPHIN) VIAL ONE (04:35)
[2019-12-17] MEDS ORDERED: WATER (STERILE) FOR INJECTION 10 ML ONE (04:35)
[2019-12-17] MEDS: cefTRIAXone FOR IV USE 1,000 MG in WATER (STERILE) FOR INJECTION 10 ML IV SCH (05:13)
[2019-12-17 05:38] LABS: HEMOGLOBIN 7.3 G/DL (13.3-17.7); MEAN PLATELET VOLUME 9.6 FL (7.4-10.4); WHITE BLOOD COUNT 7.1 10^3/uL (4.3-11.0)
[2019-12-17 05:56] LABS: BUN/CREATININE RATIO 9; CALCIUM 7.6 MG/DL (8.5-10.1); CARBON DIOXIDE 25 MMOL/L (21-32); CHLORIDE 107 MMOL/L (98-107); CREATININE SERUM 0.74 MG/DL (0.60-1.30); GFR ESTIMATED > 60; GLUCOSE 127 MG/DL (70-105); POTASSIUM 4.1 MMOL/L (3.6-5.0); SODIUM 138 MMOL/L (135-145)
--- NOTE | 2019-12-17 07:52 | Progress Note - Surgery ---
MODESTA RUSS MED STUDENT 12/17/19 0752: Subjective Date Seen by a Provider: Dec 17, 2019 Time Seen by a Provider: 07:00 Subjective/Events-last exam Pt states he is doing fine today. Denies fever, chills, nausea, vomiting, CP, or SOB. Pt laying in bed with eyes closed, not wanting to answer questions. Hgb 7.3 today from 7.2 yesterday. Objective Exam Vital Signs Date Time Temp Pulse Resp B/P (MAP) Pulse Ox O2 Delivery O2 Flow Rate FiO2 12/17/19 04:00 36.9 83 20 124/58 (80) 97 Room Air 12/17/19 01:00 76 12/17/19 00:26 36.7 79 18 106/59 (75) 98 Room Air 12/16/19 21:00 Room Air 12/16/19 19:10 36.6 80 16 121/71 (88) 98 Room Air 12/16/19 19:00 78 12/16/19 17:55 36.6 90 16 126/68 (87) 100 Room Air 12/16/19 16:45 Room Air 12/16/19 16:43 Room Air 12/16/19 15:45 37.0 12/16/19 12:35 96 Room Air 12/16/19 12:24 80 12/16/19 12:00 36.2 76 18 103/73 (83) 95 Room Air 12/16/19 09:40 84 18 97 Room Air 12/16/19 09:35 93 16 100 OxyMask 8 12/16/19 09:30 100 16 100 OxyMask 8 12/16/19 09:00 98 Room Air 12/16/19 08:15 96 Room Air 12/16/19 08:02 36.4 80 20 111/66 (81) 99 Room Air I & O 12/17/19 07:00 Intake Total 3593 ml Output Total 600 ml Balance 2993 ml Capillary Refill : Less Than 3 Seconds General Appearance: No Apparent Distress, WD/WN HEENT: No Scleral Icterus (L), No Scleral Icterus (R) Neck: Normal Inspection Respiratory: No Accessory Muscle Use, No Respiratory Distress Cardiovascular: No JVD Peripheral Pulses: 2+ Dorsalis Pedis (R), 2+ Left Dors-Pedis (L), 2+ Radial Pulses (R), 2+ Radial Pulses (L) Gastrointestinal: other (Pt refused abdominal exam, states he has already had people examining his abdomen today) Neurologic/Psychiatric: Alert, Oriented x3, Normal Mood/Affect; No Aphasia Skin: Normal Color, Warm/Dry; No Mottled, No Pallor; Tattoos/Piercings Lymphatic: No Adenopathy Other comments Exam limited by pt's refusal Results Lab Laboratory Tests 12/16/19 08:32: 12/16/19 13:00: White Blood Count 5.4, Red Blood Count 2.24L, Hemoglobin 7.2L, Hematocrit 21L, Mean Corpuscular Volume 96, Mean Corpuscular Hemoglobin 32, Mean Corpuscular Hemoglobin Concent 34, Red Cell Distribution Width 12.8, Platelet Count 281, Mean Platelet Volume 9.0, Neutrophils (%) (Auto) 57, Lymphocytes (%) (Auto) 34, Monocytes (%) (Auto) 7, Eosinophils (%) (Auto) 2, Basophils (%) (Auto) 0, Neutrophils # (Auto) 3.1, Lymphocytes # (Auto) 1.9, Monocytes # (Auto) 0.4, Eosinophils # (Auto) 0.1, Basophils # (Auto) 0.0 12/17/19 05:05: White Blood Count 7.1, Red Blood Count 2.24L, Hemoglobin 7.3L, Hematocrit 21L, Mean Corpuscular Volume 96, Mean Corpuscular Hemoglobin 33, Mean Corpuscular Hemoglobin Concent 34, Red Cell Distribution Width 12.7, Platelet Count 311, Mean Platelet Volume 9.6, Sodium Level 138, Potassium Level 4.1, Chloride Level 107, Carbon Dioxide Level 25, Anion Gap 6, Blood Urea Nitrogen 7, Creatinine 0.74, Estimat Glomerular Filtration Rate > 60, BUN/Creatinine Ratio 9, Glucose Level 127H, Calcium Level 7.6L Assessment/Plan Assessment/Plan Assessment/Plan anemia hematemesis blood in stool/melena hepatitis C epigastric abd pain on protonix/octreotide EGD did not show acute source of bleeding, possible varices, recommend GI f/u continue to follow hgb transfusing prbc as needed Clinical Quality Measures DVT/VTE Risk/Contraindication: Risk Factor Score Per Nursin RFS Level Per Nursing on Admit: 1=Low/No VTE PPX WYATT MCKEON DO 12/17/19 1557: Subjective Time Seen by a Provider: 14:49 Subjective/Events-last exam Pt seen and examined denies abdominal pain and hematemesis. States he is ready to go home. Review of Systems General: No Chills, No Night Sweats Pulmonary: No Dyspnea, No Cough Cardiovascular: No: Chest Pain, Palpitations Gastrointestinal: No: Nausea, Vomiting, Abdominal Pain Objective Exam General Appearance: No Apparent Distress, WD/WN Respiratory: Lungs Clear, No Accessory Muscle Use, No Respiratory Distress Cardiovascular: Regular Rate, Rhythm, No Murmur Gastrointestinal: non tender, soft, no organomegaly Neurologic/Psychiatric: Alert, Oriented x3 Skin: Normal Color, Warm/Dry Assessment/Plan Assessment/Plan Assessment/Plan Anemia Hematemesis ?? secondary to varices Pt is stable now and Hg has not dropped, he is being sent home and should follow up with Dr. Bennett as an outpt. If he has further hematemesis he needs to go to the ER right away; he understood. Supervisory-Addendum Brief Verification & Attestation Participated in pt care: history, MDM, physical Personally performed: exam, history, MDM Care discussed with: Medical Student Procedures: n/a Verification and Attestation of Medical Student E/M Service A medical student performed and documented this service. I then reviewed and verified all information documented by the medical student and made modifications to such information, when appropriate. I personally performed a physical exam, medical decision making and then discussed any differences between the notes and made revisions as necessary to create one note. Wyatt Mckeon , 12/17/19 , 15:57 MODESTA RUSS MED STUDENT Dec 17, 2019 07:52 WYATT MCKEON DO Dec 17, 2019 15:57
[2019-12-17 08:00] VITALS: BP 109/56
[2019-12-17] MEDS: OCTREOTIDE DRIP 500 MCG/NS 99 ML IV SCH ×2 (08:04)
[2019-12-17] MEDS: PANTOPRAZOLE 40 MG (PROTONIX) VIAL IV SCH (08:06)
--- NOTE | 2019-12-17 10:09 | Discharge Summary ---
Diagnosis/Chief Complaint Date of Admission Dec 15, 2019 at 13:30 Date of Discharge Admission Diagnosis GI Bleed Primary Care No,Local Physician Discharge Diagnosis (1) Upper GI bleed Status: Acute (2) Normocytic anemia Status: Acute (3) Hematochezia Status: Acute (4) Hepatitis-C Status: Chronic (5) Hypertension Status: Chronic (6) Hyperglycemia Status: Acute (7) Hypotension Status: Acute Discharge Summary Procedures/Consulations Surgery- Dr Bennett Pulm- Dr Cabello Discharge Physical Exam Allergies: Coded Allergies: No Known Drug Allergies (Unverified , 12/15/19) Vitals & I&Os Vital Signs Date Time Temp Pulse Resp B/P (MAP) Pulse Ox O2 Delivery O2 Flow Rate FiO2 12/17/19 12:00 37.2 77 18 124/56 (78) 99 Room Air 12/16/19 09:35 8 General Appearance: No Apparent Distress, WD/WN Respiratory: Lungs Clear, No Respiratory Distress Cardiovascular: Regular Rate, Rhythm, No Murmur Neurologic/Psychiatric: Alert, Oriented x3 Hospital Course patient was admitted due to upper GI bleed. Surgery was consulted and performed an EGD which showed some questionable varices though they were not definitively seen. Fortunately there was no active bleeding noted on EGD. he was treated with a PPI and octreotide drip and did well his hemoglobin stabilized. He was discharged home in stable condition to follow up with his primary care doctor and to establish care with gastroenterology for evaluation of hepatitis C and management of possible varices. Labs (last 24 hrs) Laboratory Tests 12/17/19 05:05: White Blood Count 7.1, Red Blood Count 2.24L, Hemoglobin 7.3L, Hematocrit 21L, Mean Corpuscular Volume 96, Mean Corpuscular Hemoglobin 33, Mean Corpuscular Hemoglobin Concent 34, Red Cell Distribution Width 12.7, Platelet Count 311, Mean Platelet Volume 9.6, Sodium Level 138, Potassium Level 4.1, Chloride Level 107, Carbon Dioxide Level 25, Anion Gap 6, Blood Urea Nitrogen 7, Creatinine 0.74, Estimat Glomerular Filtration Rate > 60, BUN/Creatinine Ratio 9, Glucose Level 127H, Calcium Level 7.6L Patient resulted labs reviewed. Pending Labs Imaging: Reviewed Imaging Report Discussion & Recommendations Discharge Planning: >30 minutes discharge planning Discharge Home Medications: Active Scripts Active Protonix (Pantoprazole Sodium) 40 Mg Tablet.dr 40 Mg PO DAILY Instructions to patient/family Please see electronic discharge instructions given to patient. Clinical Quality Measures DVT/VTE Risk/Contraindication: Risk Factor Score Per Nursin RFS Level Per Nursing on Admit: 1=Low/No VTE PPX Problem Qualifiers (1) Hepatitis-C: Viral hepatitis chronicity: chronic Hepatic coma status: without hepatic coma Qualified Codes: B18.2 - Chronic viral hepatitis C (2) Hypertension: Hypertension type: essential hypertension Qualified Codes: I10 - Essential (primary) hypertension (3) Hypotension: Hypotension type: hypotension due to hypovolemia Qualified Codes: I95.89 - Other hypotension; E86.1 - Hypovolemia ADRIENNE GARCES MD Dec 17, 2019 10:09
--- NOTE | 2019-12-17 10:13 | Discharge Inst-Simple/Standard ---
Discharge Inst-Standard Patient Instructions/Follow Up Plan of Care/Instructions/FU: Please continue to take your medications as written. Please follow up with your primary care doctor and with GI to follow up this hospital stay. Activity as Tolerated: Yes Discharge Diet: No Restrictions Return to The Hospital For: Chest pain, shortness of breath, vomiting blood, dark stool, fever, if you feel you are getting worse. Planned Outpatient Orders/Ref. Pneu Vac Indicated: Yes ADRIENNE GARCES MD Dec 17, 2019 10:13
[2019-12-17] MEDS ORDERED: PANT40TA2 PO (10:14)
[2019-12-17] MEDS ORDERED: CHLORASEPTIC SPRAY 177 ML LIQUID MC PRN (10:30)
[2019-12-17 12:00] VITALS: BP 124/56
[2019-12-17 15:59] VITALS: BP 103/49
[2019-12-17 16:10] VITALS: BP 103/49
--- NOTE | 2019-12-17 16:10 | NUR ---
PATO PEACE demonstrates understanding of discharge instructions and accurately returns instructions upon questioning. Copy of Post-Discharge Instructions given to PT. PATO PEACE is able to manage continuing needs after discharge. Patients belongings returned to PT. Patient discharged from [facility]- on 12/17/19 at 1610. PATO PEACE left floor via W/C, accompanied by STAFF AND PER AUTO.
--- NOTE | 2019-12-19 09:13 | Physician Query Clarification ---
PQ-Further Specificity Admission/Discharge Admission Date: Dec 15, 2019 at 13:30 Discharge Date: Dec 17, 2019 at 16:10 The medical record reflects the following clinical scenario: History/Risk Factors: hematemesis, melena, chronic hepatitis C Clinical Findings: esophageal varices, gastritis, diverticulosis, hgb/hct 7.2 9/9 pN by Aris Sanchze states Hematemesis?? secondary to varices Treatment: PPI, Octriotide drip Question: Can you further specify the etiology of the hematemesis and melena per the clinical indicators above? Please document a response in the Progress Notes or Discharge Summary. 1. esophageal varices 2. etiology undetermined 3. Other, with explanation of the clinical findings. 4. Clinically undetermined, no explanation for the clinical findings. PHYSICIAN RESPONSE Can you specify per above: 1 Please remember a lack of response to the above will prompt a phone page by CDI/Coding staff. In responding to this query, please exercise your independent professional judgment. The purpose of this communication is to more accurately reflect the complexity of your patients condition. The fact that a question is asked does not imply that any particular answer is desired or expected. Thank you for your timely response to this clarification. Requestors name: Elizabeth THIS PHYSICIAN QUERY FORM IS A PERMANENT PART OF THE MEDICAL RECORD ELIZABETH SMALLWOOD Dec 19, 2019 09:13 ADRIENNE GARCES MD Dec 20, 2019 10:14
--- NOTE | 2019-12-19 09:18 | Physician Query Clarification ---
PQ-Further Specificity Admission/Discharge Admission Date: Dec 15, 2019 at 13:30 Discharge Date: Dec 17, 2019 at 16:10 Dr. Castillo, The medical record reflects the following clinical scenario: History/Risk Factors: hematemesis, melena, chronic hepatitis C Clinical Findings: Hgb/Hct 7.05/30 Treatment: PPI, Octriotide drip Question: Can you further specify the type of anemia per the clinical indicators above? Please document a response in the Progress Notes or Discharge Summary. 1. anemia d/t acute blood loss 2. normocytic anemia 3. Other, with explanation of the clinical findings. 4. Clinically undetermined, no explanation for the clinical findings. PHYSICIAN RESPONSE Can you specify per above: 1 Please remember a lack of response to the above will prompt a phone page by CDI/Coding staff. In responding to this query, please exercise your independent professional judgment. The purpose of this communication is to more accurately reflect the complexity of your patients condition. The fact that a question is asked does not imply that any particular answer is desired or expected. Thank you for your timely response to this clarification. Requestors name: Deepti THIS PHYSICIAN QUERY FORM IS A PERMANENT PART OF THE MEDICAL RECORD DEEPTI SMALLWOOD Dec 19, 2019 09:18 ADRIENNE CASTILLO MD Dec 20, 2019 10:15
--- NOTE | 2019-12-19 10:41 | Anesthesia-General Post-Op ---
MAC Patient Condition Mental Status/LOC: Same as Preop Cardiovascular: Satisfactory Nausea/Vomiting: Absent Respiratory: Satisfactory Pain: Controlled Complications: Absent Post Op Complications Complications None Follow Up Care/Instructions Patient Instructions None needed. Anesthesiology Discharge Order Discharge Order Post-dated progress note: Patient on 12-16-2019 at approximately 1000 after the procedure and he was doing well, no complaints, stable vital signs, no apparent adverse anesthesia problems. JONN WONG DO Dec 19, 2019 10:41
--- NOTE | 2019-12-23 09:45 | Physician Query Clarification ---
PQ-Further Specificity Admission/Discharge Admission Date: Dec 15, 2019 at 13:30 Discharge Date: Dec 17, 2019 at 16:10 MILI, The medical record reflects the following clinical scenario: History/Risk Factors: Esophageal bleeding, ABLA, chronic hepatitis C Clinical Findings: esophageal varices, Hgb/Hct 7.2, hematemesis, melena, n/v, Hep C with probable cirrhosis per Dr. Cabello consult Treatment: IV Protonix, IV Octrectide Question: Can you further specify the underlying cause of the bleeding esophageal varices per the clinical indicators above? Please document a response in the Progress Notes or Discharge Summary. 1. bleeding esophageal varices d/t chronic viral hepatitis 2. bleeding esophageal varices d/t cirrhosis of the liver 3. bleeding esophageal varices etiology undetermined 4. Other, with explanation of the clinical findings. 5. Clinically undetermined, no explanation for the clinical findings. PHYSICIAN RESPONSE Can you specify per above: 1 Please remember a lack of response to the above will prompt a phone page by CDI/Coding staff. In responding to this query, please exercise your independent professional ju dgment. The purpose of this communication is to more accurately reflect the complexity of your patients condition. The fact that a question is asked does not imply that any particular answer is desired or expected. Thank you for your timely response to this clarification. Requestors name: Deepti THIS PHYSICIAN QUERY FORM IS A PERMANENT PART OF THE MEDICAL RECORD DEEPTI SMALLWOOD Dec 23, 2019 09:45 ADRIENNE GARCES MD Dec 29, 2019 13:16
== END 2019-12-17 16:10 | disposition home or self-care (01) | DRG 441 ==
LOC: ER 11:46 → ICU 13:30 → 4TH 12-16 17:44
PROVIDERS: ADMIT Family Medicine; ATTEND Family Medicine
PROC: 0DB38ZX Excision of Lower Esophagus, Via Natural or Artificial Opening Endoscopic, Diagnostic (ICD-10-PCS; 2019-12-16)
PROC: 0DB78ZX Excision of Stomach, Pylorus, Via Natural or Artificial Opening Endoscopic, Diagnostic (ICD-10-PCS; principal; 2019-12-16 09:12)
DX: B18.2 Chronic viral hepatitis C (principal); I85.11 Secondary esophageal varices with bleeding; D62 Acute posthemorrhagic anemia; F41.9 Anxiety disorder, unspecified; K57.90 Diverticulosis of intestine, part unspecified, without perforation or abscess without bleeding; S50.312A Abrasion of left elbow, initial encounter; I95.9 Hypotension, unspecified; R73.9 Hyperglycemia, unspecified; I10 Essential (primary) hypertension; K29.70 Gastritis, unspecified, without bleeding; Z20.828 Contact with and (suspected) exposure to other viral communicable diseases; W18.30XA Fall on same level, unspecified, initial encounter
CPT/HCPCS: 36415; 71045; 74177; 80048; 80053; 80306; 80320; 81000; 83735; 84100; 85025; 85027; 85610; 86850; 86900; 86901; 86920; 87635; 88305; 88312; 96361; 96365; 96366; 96375